=== PATIENT | male | born 1960 | race Caucasian/White ===

== ENCOUNTER 2022-02-16 13:16 | Observation (INO) ==
[2022-02-16] MEDS ORDERED: SODIUM CHLORIDE 0.9% 1000ML 1,000 ML IV STA (13:28)
[2022-02-16] MEDS ORDERED: ONDANSETRON INJ 2 MG/ML 2 ML VIAL IV STA (13:34)
[2022-02-16] MEDS ORDERED: FAMOTIDINE 20 MG in SYRINGE 3 ML IV STA (13:34)
[2022-02-16] MEDS ORDERED: HYDROmorphone INJ 0.5 MG/0.5 ML SYR IV STA (13:34)
[2022-02-16] MEDS ORDERED: DICYCLOMINE HCL 10 MG/ML 2 ML AMP/VIAL IM ONE (13:34)
[2022-02-16] MEDS ORDERED: SODIUM CHLORIDE 0.9% 1000ML 1,000 ML IV SCH (13:45)
[2022-02-16 13:54] LABS: Basophils # (auto) 0.05 K/uL (0-0.2); Basophils % (auto) 0.3 %; Hematocrit (blood only) 49.4 % (40.1-51.0); Hemoglobin 17.8 g/dl (14.0-18.0); Immature Granulocytes # (auto) 0.07 K/uL (0.00-0.02); Immature Granulocytes % (auto) 0.4 %; Lymphocytes # (auto) 2.21 K/uL (1.2-3.4); Lymphocytes % (auto) 11.1 %; Mean Corpuscular Hemoglobin 29.5 pg (25.0-34.0); Mean Corpuscular Volume 81.8 fL (80.0-100.0); Mean Platelet Volume 9.7 fL (9.4-12.4); Monocytes # (auto) 1.53 K/uL (0.24-0.82); Monocytes % (auto) 7.7 %; Neutrophils % (auto) 80.5 %; Platelet Count 247 K/uL (130-400); RDW Coefficient of Variation 12.2 % (11.5-14.5); RDW Standard Deviation 36.4 fL (36.4-46.3); Red Blood Count 6.04 M/uL (4.63-6.08); White Blood Count 19.86 K/ul (4.8-10.8)
[2022-02-16] MEDS ORDERED: FAMOTIDINE 20MG/5ML IV PUSH IV ONE (14:19)
[2022-02-16 14:22] LABS: Alanine Aminotransferase 79 U/L (7-52); Albumin Globulin Ratio 1.1 (0.9-2); Albumin Level 3.9 gm/dl (3.4-5.0); Alkaline Phosphatase 74 U/L (34-104); Anion Gap 15 (3-11); Aspartate Aminotransferase 46 U/L (13-39); BUN Creatinine Ratio 28.4 (10-20); Bilirubin,Total 1.4 mg/dl (0.2-1.0); Blood Urea Nitrogen 23 mg/dl (6-23); Calcium 8.5 mg/dl (8.5-10.1); Carbon Dioxide 21 mmol/L (21-32); Chloride 89 mmol/L (98-107); Est GFR (African American) 112.7 ml/min; Est GFR (Non-African American) 97.3 ml/min; Globulin 3.5 gm/dl (2.5-4.0); Glucose 330 mg/dl (70-99(Fasting)); Lipase 7 U/L (11-82); Potassium 4.6 mmol/L (3.5-5.1); Sodium 125 mmol/L (136-145); Total Protein 7.4 gm/dl (6.0-8.3)
--- NOTE | 2022-02-16 14:42 | History & Physical Report ---
Date of Service February 16, 2022 Assessment & Plan (1) Gastritis and duodenitis: Plan: - CT A/P: Thickening of the pylorus and proximal duodenum may represent infectious/inflammatory gastritis/duodenitis. This is minimally increased from prior exam. Nonobstructive nephrolithiasis also seen. - Likely medication induced from frequent Aleve 10-15 pills/week for headaches, exacerbated by frequent vomiting over past 4 days. - Likely dehydrated and WBC count is reactive, but checking urine to r/o that as a source of potential infection. - Will keep NPO for now but in a few hours could advance to clear liquid diet and continue to advance as tolerated. - Scheduled Pepcid, Protonix, Carafate, Bentyl prn. - Will defer on GI consult unless unable to advance diet in a reasonable amount of time or Hgb starts to decline significantly. Currently stable at 17.8. (2) Elevated LFTs: Plan: - AST, ALT, t bili all mildly elevated, actually lower than baseline over the past year. - CT A/P yesterday 02/15: liver unremarkable, GB w/o stones, normal caliber wall, no intra- or extrahepatic biliary ductal dilation. - Continue to monitor. (3) Uncontrolled type 2 diabetes mellitus: Plan: - Follows with endocrine who has questioned whether he is type 1 vs type 2 - C peptide wnl, islet cell AB negative, insulin autoantibody negative-- indicates DM2. 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 - BSG 330 on admit, AG 15, lactate 2.1, bicarb 21. - Will place on weight based basal/bolus insulin. (4) Dyslipidemia: Plan: - Has previously declined stain therapy, also would not initiate currently with elevated LFTs. (5) Tobacco use disorder: Plan: - Smokes 1 PPD. - Nicotine patch ordered while hospitalized. Plan - Obs med/tele. - SCDs for VTE ppx. - Full Code. History of Present Illness Chief Complaint: abdominal pain, nausea, vomiting x 4 days Primary Care Provider: Jonathon Burns PA-C Oni Jason is a 61-year-old male with past medical history significant for diabetes, hyperlipidemia, and tobacco use who is presenting today with abdominal pain. Starting Monday evening he had severe abdominal pain around his bellybutton with nausea and vomiting. Has been vomiting every 2 hours. He also notes that his sugar has been reading above 600 at home since then. He reports chills but no fevers. Monday was an ordinary day, did not eat anything particularly unusual for him, had [employer] chili and chocolate shake, no alcohol intake, he drinks alcohol very rarely, once or twice per month. He does state he has been taking Aleve fairly frequently, and another medicine that starts within a headaches, approximately 10-15 pills/week. He was seen in our ED yesterday, labs and significant for WBC 18, glucose of 400 with an AG 13, imaging did show thickening of the pylorus and proximal duodenum possibly recommending infectious or inflammatory gastritis/duodenitis. Patient was given IV fluids, pain medication, as well as Trulicity injection and was discharged home as his pain was under much better control. Several hours after returning home his pain came back again, rates 7/10. He has been drinking much more water and urinating more frequently over the past week or so. He has not had any diarrhea, constipation, melena, hematochezia, hematemesis, dysuria, hematuria. Today he is returning for worsening abdominal pain and elevated blood sugars. L abs significant for glucose of 330 with an anion gap of 15, bicarb 21. WBC is slightly elevated to 19.8, lactate 2.1, pseudohyponatremia 125, corrects to [id number] when accounting for BSG 330. T bili, AST, ALT all mildly elevated, all consistent/lower than baseline. Allergies Allergy/AdvReac Type Severity Reaction Status Date / Time No Known Allergies Allergy Verified 02/16/22 14:58 Home Medications Medication Instructions Recorded Confirmed Type OneTouch Delica Lancets 30 gauge #300 ea 02/25/21 11/25/21 Rx (lancets) OneTouch Verio test strips (blood #300 ea 02/25/21 11/25/21 Rx sugar diagnostic) OneTouch Verio Meter #1 ea 06/15/21 11/25/21 Rx (blood-glucose meter) ondansetron 4 mg disintegrating 4 mg PO Q6H PRN nausea and 02/15/22 Rx tablet vomiting #10 tabs dulaglutide 0.75 mg/0.5 mL 0.75 mg subcut WK 02/16/22 02/16/22 History subcutaneous pen injector (Trulicity) Past Med/Surg History Medical History Dyslipidemia Elevated LFTs Tobacco use disorder Uncontrolled type 2 diabetes mellitus Surgical History No significant past surgical history Social History Smoking Status: Current every day smoker Tobacco Type: Cigarettes Preferred Language: Citizen Of [place] marital status: Single Current Living Situation: Significant Other current occupational status: unemployed Feels Safe at Home: Yes Review of Systems Review of Systems: Constitutional: chills and anorexia x 4 days without fever; no weakness, fatigue, myalgias, night sweats Eyes: No diplopia, no worsening or blurred vision ENT: normal hearing, no trouble swallowing Respiratory: No cough, sputum, dyspnea at rest or on exertion Cardiovascular: No chest pain, tightness or palpitations Abdomen: central abdominal pain with nausea, vomiting x 4 days, no diarrhea, constipation, melena, hematochezia, hematemesis : Denies dysuria, hematuria, increased urgency/frequency, urinary retention Musculoskeletal: No joint pain, calf pain, swelling Neurologic: No weakness, numbness/tingling, or balance problems Psychiatric: No anxiety or depression Skin: No rash or itch Physical Exam Physical Exam: General: awake, alert, no apparent distress Head: Normocephalic, atraumatic ENT: PERRL, EOMI, no pharyngeal exudate, mucous membranes moist Chest: Clear to auscultation, on room air, no adventitious breath sounds Cardiac: Regular rate and rhythm, no murmur, no JVD, normal peripheral pulses, good capillary refill Abdominal: TTP in periumbilical region without rebound or guarding; NABS x 4 quadrants, soft, nontender to palpation Extremities: Normal inspection, no peripheral edema or erythema, calfs nontender to palpation Psych: Normal mood and affect Neuro: AAO x 3, strength intact bilaterally and rated 5/5, no motor deficits, speech is clear, no peripheral sensory deficits Skin: no rash or erythema Results & Data Results & Data ([facility]) Vital Signs (Past 12 Hours) Vital Signs Temp Pulse Resp BP Pulse Ox O2 Del Method 02/16/22 13:21 37.1 C 109 H 16 147/97 H 99 Room Air Laboratory Results Abnormal lab results 02/16/22 02/16/22 02/16/22 Range/Units 13:44 13:44 13:44 WBC 19.86 H (4.8-10.8) K/ul Neut # (Auto) 16.00 H (1.4-6.5) K/uL [place] # (Auto) 1.53 H (0.24-0.82) K/uL Immature Gran # (Auto) 0.07 H (0.00-0.02) K/uL Sodium 125 L (136-145) mmol/L Chloride 89 L (98-107) mmol/L Anion Gap 15 H (3-11) BUN/Creatinine Ratio 28.4 H (10-20) Glucose 330 H* (70-99(Fasting)) mg/dl Lactate 2.1 H* (0.4-2.0) mmol/L Total Bilirubin 1.4 H (0.2-1.0) mg/dl AST 46 H (13-39) U/L ALT 79 H (7-52) U/L Lipase 7 L (11-82) U/L ECG Additional Comments: Sinus tachycardia Possible Anterior infarct , age undetermined Abnormal ECG When compared with ECG of 06-APR-2015 17:06, Nonspecific T wave abnormality no longer evident in Lateral leads. Code Status & VTE Plan Code Status Full Code. Supervising Physician Co-Signing Physician Notes Patient was seen and examined independently I discussed the case with Lindsay FLYNN I reviewed pertinent past medical social family history and also the plan of care and agree with the plan of care. Patient be brought in the facility because he cannot keep down liquids solids and is diabetic. Patient has improved abdominal pain with hydration here in the ER. He denies having any melena. His examination has some mild epigastric discomfort to deep palpation and some bilateral lower abdominal quadrant discomfort to exam. Otherwise he appears to be stable at this time. The patient brought in to treat the possible NSAID associated gastritis with PPI H2 and Carafate Advance his diet cautiously and follow his glucose for appropriate diabetic care Any exceptions will be noted below PG Care Time/CCT Total # of Minutes Spent Total Time Spent with Patient: Total time spent is greater than 50% in coordination of care (as documented) at patient's floor/unit and/or counseling patient: Coding Level of Care Code INT OBSERVATION CARE 70M LVL 3 Diagnoses Gastritis and duodenitis K29.90 Elevated LFTs R79.89 Uncontrolled type 2 diabetes mellitus E11.65 Dyslipidemia E78.5 Tobacco use disorder F17.200
[2022-02-16] MEDS ORDERED: GLUCOSE 10 TAB/TUBE PO PRN ×2 (16:00→16:30)
[2022-02-16] MEDS ORDERED: GLUCAGON FOR INJ 1 MG VIAL SQ PRN ×2 (16:00→16:30)
[2022-02-16] MEDS ORDERED: CARBOHYDRATES FOR HYPOGLYCEMIA PO PRN ×2 (16:00→16:30)
[2022-02-16] MEDS ORDERED: DEXTROSE 50% 50 ML SYRINGE IV PRN ×2 (16:00→16:30)
[2022-02-16] MEDS ORDERED: GLUCOSE 40% GEL 15 GM TUBE PO PRN ×2 (16:00→16:30)
[2022-02-16 16:03] LABS: Appearance Urine Clear (Clear); Bilirubin Urine Negative (Negative); Blood Urine Negative (Negative); Color Urine Yellow; Glucose Urine UA 3+ (Negative); Ketones Urine 3+ (Negative); Leukocyte Esterase Urine Negative (Negative); Nitrite Urine Negative (Negative); Protein Urine Negative (Negative); Specific Gravity Urine 1.035 (1.000-1.030); Urobilinogen Urine Negative (Negative); pH Urine 5.5 (4.5-7.5)
[2022-02-16] MEDS ORDERED: ALUMINUM/MAGNESIUM SUSP 30 ML UDC PO PRN (16:30)
[2022-02-16] MEDS ORDERED: POLYETHYLENE (MIRALAX) 17 GM PACK PO PRN (16:30)
[2022-02-16] MEDS ORDERED: INSULIN ASPART PER UNIT SC SCH ×2 (16:30)
[2022-02-16] MEDS ORDERED: MoRPHine SULFATE 4 MG/ML 1 ML CARP\\VIAL IV PRN (16:30)
[2022-02-16] MEDS ORDERED: PHARMACY GLYCEMIC MGMT CONSULT PRN (16:30)
[2022-02-16] MEDS ORDERED: ONDANSETRON INJ 2 MG/ML 2 ML VIAL IV PRN (16:30)
[2022-02-16] MEDS ORDERED: PNEUMOCOCCAL POLYSACCHARIDES 25 MCG/0.5 ML VIAL/SYR IM ONE (16:46)
[2022-02-16] MEDS ORDERED: FLUARIX QUADRIVALENT 0.5 ML SYR IM ONE (16:46)
[2022-02-16] MEDS ORDERED: Nursing to Pharmacy Communication SCH ×2 (17:00→21:15)
[2022-02-16] MEDS: LACTATED RINGER'S 1,000 ML IV SCH (17:01)
[2022-02-16] MEDS: SUCRALFATE 1 GM/10 ML UDC PO SCH ×2 (17:48→20:03)
[2022-02-16] MEDS: DICYCLOMINE HCL 10 MG CAP PO SCH ×2 (17:48→20:03)
[2022-02-16] MEDS ORDERED: LANTUS PER UNIT CHARGE SQ ONE (18:00)
--- NOTE | 2022-02-16 18:43 | Emergency Department Note ---
Impression & Plan Uncontrolled type 2 diabetes mellitus, Kidney stone, Abdominal pain, Nausea and vomiting, Gastritis and duodenitis ED Provider Note CHIEF COMPLAINT: Abdominal pain, diabetes HISTORY OF PRESENT ILLNESS: This 61-year-old male patient presents to the emergency department with complaints of continued abdominal pain. The patient was evaluated here yesterday in the emergency department and noted to have elevated blood glucose levels. He states he has been off of his Trulicity until yesterday when he was given a shot in the emergency department. Patient states he had a CAT scan of his abdomen and was told that he had inflammation of the stomach. He has been vomiting recently. Patient states his blood sugars are high because he has not been eating properly. He denies any fevers, chills, blood in the emesis or stools. REVIEW OF SYSTEMS: A review of systems was performed with positives and pertinent negatives listed in the history of present illness. 10 systems were reviewed and are otherwise negative. ALLERGIES: see below MEDICATIONS: see below PMH: see below SOCIAL HISTORY: see below DDx:Appendicitis, testicular torsion, infections, diverticulitis, UTI, obstructi on, mesenteric ischemia, aortic pathology, inflammatory bowel disease, renal colic, PUD, pancreatitis, biliary pathology, hernia, volvulus, constipation, as well as other pathologies. PHYSICAL EXAM: Vital signs reviewed. General: Chronically ill-appearing 61 yo male, in some discomfort. HEENT: No scleral icterus, PERRLA, neck supple. Moist mucous membranes Cardiovascular: Regular rate and rhythm, no extra sounds. Pulmonary: Clear to auscultation bilaterally, normal work of breathing. Abdomen: Soft, mild diffuse tenderness, no rebound or guarding, nondistended, positive bowel sounds. Musculoskeletal: Atraumatic, no peripheral edema. Neurologic: Patient awake alert and oriented x 3 Skin: Warm, dry, no rash EMERGENCY DEPARTMENT COURSE/MDM: This patient was evaluated and appeared to be in no significant distress. IV access was obtained and laboratory work was drawn. The patient was placed on the cardiac cath technician and noted to be slightly tachycardic. The patient was hydrated with normal saline solution, given IV Dilaudid and Zofran and 20 mg of IM Bentyl for his discomfort. Patient's records from yesterday were reviewed. He was given 20 mg of IV Pepcid. He did admit to taking aspirin to help "cleanse his blood sugar." Patient's laboratory work reveals a leukocytosis which is consistent with yesterday at 19, and the anion gap of 15 and lactate of 2.1. Patient was also noted to be hyponatremic with a blood glucose of 330. I did discuss the case with the hospitalist serv ice, I do believe there is a mixed picture secondary to his Trulicity yesterday and his acute abdominal pain. Patient may need to be evaluated for endoscopy. He will be evaluated by the hospitalist service for admission and further management. Patient is aware of the plan and agrees. MONITORING: An order for cardiac monitoring was placed and the patient is noted to be in a [] at [] beats per minute. RADIOLOGY: See below EKG: Sinus tachycardia at 103 bpm, possible previous anterior infarct, QTC of 445. Normal ST segments. No PVC, no PAC. DISPOSITION: Admission Past Med/Surg History Medical History Dyslipidemia Elevated LFTs Tobacco use disorder Uncontrolled type 2 diabetes mellitus Surgical History No significant past surgical history Social History Smoking Status: Current every day smoker Tobacco Type: Cigarettes Second Hand Exposure: Yes; Do You Dip or Chew Tobacco: No; Tobacco Cessation Education Requested by Patient: No Hx Alcohol Use: Yes Alcohol type: beer Hx Substance Use: Yes Preferred Language: Portuguese Console Assembler Required: No Beliefs That Will Affect Care: None marital status: Single Current Living Situation: Spouse current occupational status: unemployed Other Information That Helps Us Care for You: No Feels Safe at Home: Yes Allergies Allergies Allergy/AdvReac Type Severity Reaction Status Date / Time No Known Allergies Allergy Verified 02/16/22 14:58 Home Meds Home Medications Medication Instructions Recorded Confirmed dulaglutide 0.75 mg/0.5 mL 0.75 mg subcut WK 02/16/22 02/16/22 subcutaneous pen injector (Trulicity) Previous Rx's Medication Instructions Recorded OneTouch Delica Lancets 30 gauge #300 ea 02/25/21 (lancets) OneTouch Verio test strips (blood #300 ea 02/25/21 sugar diagnostic) OneTouch Verio Meter #1 ea 06/15/21 (blood-glucose meter) ondansetron 4 mg disintegrating 4 mg PO Q6H PRN nausea and 02/15/22 tablet vomiting #10 tabs Results & Data (ED) Vital Signs Vital Signs - 24 hr 02/16/22 13:21 02/16/22 15:00 02/16/22 15:00 Temperature 37.1 C Temperature Source Temporal Artery Scan Pulse Rate 109 H Pulse Rate [Finger] 106 H Pulse Rhythm [Finger] Regular Pulse Strength [Finger] Normal Respiratory Rate 16 18 Respiratory Effort / Characteristics Non-Labored Spontaneous Non-Labored Respiratory Depth Normal Normal Respiratory Pattern Regular Regular Blood Pressure 147/97 H Blood Pressure [Right Arm] 174/102 H Blood Pressure Mean 113 Blood Pressure Mean [Right Arm] 126 Blood Pressure Position Sitting Pulse Oximetry 99 97 98 Oxygen Delivery Method Room Air Room Air Room Air Sepsis Recent Fever Within 48 Hours No Sepsis New/Unexplained Change in Mental Status No Sepsis Action Taken by Nursing No Action Required Home Medications Current Medication List: was personally reviewed by me Laboratory Data Attestation: I reviewed the patient's lab results. Result diagrams: 02/16/22 13:44 02/16/22 13:44 Lab Results 02/16/22 02/16/22 02/16/22 Range/Units 13:44 13:44 13:44 WBC 19.86 H (4.8-10.8) K/ul RBC 6.04 (4.63-6.08) M/uL Hgb 17.8 (14.0-18.0) g/dl Hct 49.4 (40.1-51.0) % MCV 81.8 (80.0-100.0) fL MCH 29.5 (25.0-34.0) pg MCHC 36.0 (32.0-36.0) g/dL RDW Std Deviation 36.4 (36.4-46.3) fL RDW Coeff of Emma 12.2 (11.5-14.5) % Plt Count 247 (130-400) K/uL MPV 9.7 (9.4-12.4) fL Immature Gran % (Auto) 0.4 % Neut % (Auto) 80.5 % Lymph % (Auto) 11.1 % [place] % (Auto) 7.7 % Eos % (Auto) 0.0 % Baso % (Auto) 0.3 % Neut # (Auto) 16.00 H (1.4-6.5) K/uL Lymph # (Auto) 2.21 (1.2-3.4) K/uL [place] # (Auto) 1.53 H (0.24-0.82) K/uL Eos # (Auto) 0.00 (0-0.50) K/uL Baso # (Auto) 0.05 (0-0.2) K/uL Immature Gran # (Auto) 0.07 H (0.00-0.02) K/uL Sodium 125 L (136-145) mmol/L Potassium 4.6 (3.5-5.1) mmol/L Chloride 89 L (98-107) mmol/L Carbon Dioxide 21 (21-32) mmol/L Anion Gap 15 H (3-11) BUN 23 (6-23) mg/dl Creatinine 0.81 (0.6-1.4) mg/dl Est Cr Clr Drug Dosing Not Reportable Est GFR ( Amer) 112.7 ml/min Est GFR (Non-Af Amer) 97.3 ml/min BUN/Creatinine Ratio 28.4 H (10-20) Glucose 330 H* (70-99(Fasting)) mg/dl Lactate 2.1 H* (0.4-2.0) mmol/L Calcium 8.5 (8.5-10.1) mg/dl Total Bilirubin 1.4 H (0.2-1.0) mg/dl AST 46 H (13-39) U/L ALT 79 H (7-52) U/L Alkaline Phosphatase 74 (34-104) U/L Total Protein 7.4 (6.0-8.3) gm/dl Albumin 3.9 (3.4-5.0) gm/dl Globulin 3.5 (2.5-4.0) gm/dl Albumin/Globulin Ratio 1.1 (0.9-2) Lipase 7 L (11-82) U/L SARS-CoV-2, RNA, NAAT (NEGATIVE) 02/16/22 Range/Units 13:44 WBC (4.8-10.8) K/ul RBC (4.63-6.08) M/uL Hgb (14.0-18.0) g/dl Hct (40.1-51.0) % MCV (80.0-100.0) fL MCH (25.0-34.0) pg MCHC (32.0-36.0) g/dL RDW Std Deviation (36.4-46.3) fL RDW Coeff of Emma (11.5-14.5) % Plt Count (130-400) K/uL MPV (9.4-12.4) fL Immature Gran % (Auto) % Neut % (Auto) % Lymph % (Auto) % [place] % (Auto) % Eos % (Auto) % Baso % (Auto) % Neut # (Auto) (1.4-6.5) K/uL Lymph # (Auto) (1.2-3.4) K/uL [place] # (Auto) (0.24-0.82) K/uL Eos # (Auto) (0-0.50) K/uL Baso # (Auto) (0-0.2) K/uL Immature Gran # (Auto) (0.00-0.02) K/uL Sodium (136-145) mmol/L Potassium (3.5-5.1) mmol/L Chloride (98-107) mmol/L Carbon Dioxide (21-32) mmol/L Anion Gap (3-11) BUN (6-23) mg/dl Creatinine (0.6-1.4) mg/dl Est Cr Clr Drug Dosing Est GFR ( Amer) ml/min Est GFR (Non-Af Amer) ml/min BUN/Creatinine Ratio (10-20) Glucose (70-99(Fasting)) mg/dl Lactate (0.4-2.0) mmol/L Calcium (8.5-10.1) mg/dl Total Bilirubin (0.2-1.0) mg/dl AST (13-39) U/L ALT (7-52) U/L Alkaline Phosphatase (34-104) U/L Total Protein (6.0-8.3) gm/dl Albumin (3.4-5.0) gm/dl Globulin (2.5-4.0) gm/dl Albumin/Globulin Ratio (0.9-2) Lipase (11-82) U/L SARS-CoV-2, RNA, NAAT NEGATIVE (NEGATIVE) Administered Medications Dicyclomine HCl (Dicyclomine Hcl 10 Mg Cap) 10 mg PO ACHS CAMILO Stop: 03/18/22 16:59 Last Admin: 02/16/22 17:48 Dose: 10 mg Documented By: TLM Lactated Ringer's (Lr) 1,000 mls @ 125 mls/hr IV .Q8H CAMILO Stop: 02/17/22 08:29 Last Admin: 02/16/22 17:01 Dose: 125 mls/hr Documented By: TLM Insulin Aspart (Insulin Aspart Per Unit) 0 units SC Q6H CAMILO Stop: 03/18/22 16:29 Last Admin: 02/16/22 17:53 Dose: Not Given Documented By: TLM Sucralfate (Sucralfate 1 Gm/10 Ml Udc) 1 gm PO ACHS CAMILO Stop: 03/18/22 16:59 Last Admin: 02/16/22 17:48 Dose: 1 gm Documented By: TLM Discontinued Medications Dicyclomine HCl (Dicyclomine Hcl 10 Mg/Ml 2 Ml Amp/Vial) 20 mg IM NOW ONE Stop: 02/16/22 13:35 Last Admin: 02/16/22 13:57 Dose: 20 mg Documented By: QGV Famotidine (Famotidine 20mg/5ml Iv Push) Confirm Administered Dose 20 mg IV .STK-MED ONE Stop: 02/16/22 14:20 Last Admin: 02/16/22 14:21 Dose: Not Given Documented By: NH Hydromorphone HCl (Hydromorphone Inj 0.5 Mg/0.5 Ml Syr) 0.5 mg IV NOW STA Stop: 02/16/22 13:35 Last Admin: 02/16/22 13:58 Dose: 0.5 mg Documented By: QGV Sodium Chloride (Nss 1000ml) 1,000 mls @ 999 mls/hr IV .Q1H1M STA Stop: 02/16/22 14:28 Last Infusion: 02/16/22 15:17 Dose: 0 mls/hr Documented By: Admin: 02/16/22 13:44 Dose: 999 mls/hr Documented By: OAM Famotidine 20 mg/ Syringe 5 mls @ 2.5 mls/min IV NOW STA Stop: 02/16/22 13:35 Last Admin: 02/16/22 14:22 Dose: 2.5 mls/min Documented By: NH Sodium Chloride (Nss 1000ml) 1,000 mls @ 150 mls/hr IV .Q6H40M CAMILO Stop: 03/18/22 13:44 Last Admin: 02/16/22 14:22 Dose: 150 mls/hr Documented By: NH Insulin Aspart (Insulin Aspart Per Unit) 0 units SC ACHS CAMILO Stop: 03/18/22 16:29 Last Admin: 02/16/22 17:33 Dose: 4 units Documented By: TLM Co-signed By: ALYSHA Insulin Glargine (Lantus Per Unit Charge) 12 units SQ NOW ONE Stop: 02/16/22 18:01 Last Admin: 02/16/22 17:58 Dose: 12 units Documented By: TLM Co-signed By: EMRE Ondansetron HCl (Ondansetron Inj 2 Mg/Ml 2 Ml Vial) 4 mg IV NOW STA Stop: 02/16/22 13:35 Last Admin: 02/16/22 13:58 Dose: 4 mg Documented By: QGV Blood Pressure Blood Pressure Findings: Elevated blood pressure Blood Pressure Disposition: further management by hospitalist Discharge Plan Visit Data Chief Complaint: Abdominal Pain Stated Complaint: ABD PAIN ED Provider: Morena Wilde Discharge Problem: Uncontrolled type 2 diabetes mellitus, Kidney stone, Abdominal pain, Nausea and vomiting, Gastritis and duodenitis Patient Disposition: Admitted As Inpatient Discharge Instructions Interventions: ED Discharge Assessment Last Done: 02/16/22 16:13
[2022-02-16] MEDS: PANTOprazole 40 MG TAB PO SCH (20:02)
[2022-02-16] MEDS: FAMOTIDINE 20 MG TAB PO SCH (20:03)
[2022-02-16] MEDS ORDERED: LANTUS PER UNIT CHARGE SQ SCH (21:00)
[2022-02-16] MEDS: INSULIN ASPART PER UNIT SC SCH (21:22)
[2022-02-17] MEDS: LACTATED RINGER'S 1,000 ML IV SCH (01:13)
[2022-02-17] MEDS: MoRPHine SULFATE 2 MG/ML CARP IV PRN ×2 (01:13→12:55)
[2022-02-17] MEDS ORDERED: INSULIN ASPART PER UNIT SC SCH (02:00)
[2022-02-17 06:52] LABS: Basophils # (auto) 0.04 K/uL (0-0.2); Basophils % (auto) 0.3 %; Eosinophils # (auto) 0.02 K/uL (0-0.50); Eosinophils % (auto) 0.1 %; Hemoglobin 15.7 g/dl (14.0-18.0); Immature Granulocytes # (auto) 0.09 K/uL (0.00-0.02); Immature Granulocytes % (auto) 0.6 %; Lymphocytes # (auto) 3.01 K/uL (1.2-3.4); Lymphocytes % (auto) 19.1 %; Mean Corpuscular Hemoglobin 29.2 pg (25.0-34.0); Mean Corpuscular Hgb Conc 34.9 g/dL (32.0-36.0); Mean Corpuscular Volume 83.6 fL (80.0-100.0); Mean Platelet Volume 9.6 fL (9.4-12.4); Monocytes # (auto) 1.46 K/uL (0.24-0.82); Monocytes % (auto) 9.2 %; Neutrophils # (auto) 11.18 K/uL (1.4-6.5); Neutrophils % (auto) 70.7 %; Platelet Count 217 K/uL (130-400); RDW Coefficient of Variation 12.1 % (11.5-14.5); RDW Standard Deviation 36.9 fL (36.4-46.3); Red Blood Count 5.38 M/uL (4.63-6.08)
[2022-02-17 07:09] LABS: Albumin Globulin Ratio 1.2 (0.9-2); Albumin Level 3.4 gm/dl (3.4-5.0); Bilirubin,Total 1.3 mg/dl (0.2-1.0); Creatinine Clr Calc Pharmacy 106.1 ml/min; Est GFR (African American) 116.4 ml/min; Est GFR (Non-African American) 100.4 ml/min; Globulin 2.9 gm/dl (2.5-4.0); Magnesium 1.8 mg/dl (1.7-2.4); Potassium 3.8 mmol/L (3.5-5.1); Total Protein 6.3 gm/dl (6.0-8.3)
--- NOTE | 2022-02-17 07:17 | Electrocardiogram Report ---
Test Reason : Blood Pressure : / mmHG Vent. Rate : 103 BPM Atrial Rate : 103 BPM P-R Int : 144 ms QRS Dur : 072 ms QT Int : 340 ms P-R-T Axes : 079 041 067 degrees QTc Int : 445 ms Sinus tachycardia When compared with ECG of 06-APR-2015 17:06, No significant change Confirmed by John Fu ([id number]) on 02/17/2022 7:16:34 AM Referred By: Confirmed By:John Fu
[2022-02-17] MEDS: PANTOprazole 40 MG TAB PO SCH ×2 (07:45→21:41)
[2022-02-17] MEDS: FAMOTIDINE 20 MG TAB PO SCH ×2 (07:45→21:41)
[2022-02-17] MEDS: SUCRALFATE 1 GM/10 ML UDC PO SCH ×4 (07:45→21:40)
[2022-02-17] MEDS: DICYCLOMINE HCL 10 MG CAP PO SCH ×4 (07:45→21:41)
[2022-02-17] MEDS: NICOTINE 21 MG/24 HR TDSY TD SCH (07:48)
[2022-02-17] MEDS ORDERED: LANTUS PER UNIT CHARGE SQ SCH (09:00)
[2022-02-17] MEDS: INSULIN ASPART PER UNIT SC SCH ×4 (09:28→21:41)
[2022-02-17] MEDS ORDERED: LANTUS PER UNIT CHARGE SQ STA (12:06)
--- NOTE | 2022-02-17 15:18 | Pharmacy Report ---
Pharmacy Glycemic Short Note 2 - Date of Service February 17, 2022 - Glycemic Short BSG Results (Last 24 hours): 02/16/22 02/16/22 02/17/22 16:52 21:00 02:25 Glucose POC Glucose 253 H 197 H 162 H 02/17/22 02/17/22 02/17/22 06:31 07:52 11:58 Glucose 130 H POC Glucose 180 H 246 H OUTPATIENT ANTIDIABETIC REGIMEN: * Trulicity 0.75 mg SC every Monday * HbA1c = 12% (02/15/22) ASSESSMENT: * 61 yo M admitted secondary to nausea and vomiting. Pharmacy has been consulted to assist with inpatient glycemic management. Patient is on Trulicity monotherapy as an outpatient. Ordered and tolerating a clear liquid diet. Nausea and vomiting persists. * BSGs last evening were: 330-253-197 mg/dL. * Received 12 units of Lantus and 6 units of Novolog. * Fasting BSG was 180 mg/dL this AM. Lunchtime BSG was 246 mg/dL. * Increased Lantus to 12 units BID. Tightened Novolog. PLAN FOR INPATIENT GLYCEMIC CONTROL: * Basal insulin * Lantus 12 units SC BID * Bolus insulin * NovoLog per scale ACHS or Q6hrs while NPO * Goal Range: Low 110 mg/dL - High 140 mg/dL * Correction Factor: 25 mg/dL/unit * Nutritional / Prandial insulin per carb ratio of 1 unit per 8 grams CHO consumed
--- NOTE | 2022-02-17 17:50 | Gastrointestinal Consultation ---
Date of Consultation February 17, 2022 Assessment & Plan (1) Elevated LFTs: Followup in our office as outpatient for further workup LFT's most likely chronically elevated due to fatty liver Recommend 100% abstinence from all alcohol as it is a known liver toxin. (2) Nausea and vomiting: Recommend Antiemetic therapy PRN No complaints of this at present (3) Abdominal pain: Recommend tighter blood glucose control, as fluctuations in BG levels both acutely and chronically can cause abdominal pain and decreased GI motility (4) Gastritis and duodenitis: (5) Abnormal abdominal CT scan: No alarm symptoms at present to warrant emergent endoscopic workup I would recommend checking a Stool H. pylori Ag now....if positive, I would recommend treatment Continue Pantoprazole 40 mg PO BID Continue Famotidine 20 mg by mouth twice daily Continue Carafate 1g by mouth QID AC and HS for 10 days Avoid all NSAID's as they are ulcerogenic....recommend Tylenol PRN for pain contro. History of Present Illness Reason for Consultation: Epigastric pain and NSAID use Attending Physician: William Hu History of Present Illness Oni Jason is a 61 yo CM with poorly controlled DM, elevated LFT's and chronic NSAID use, who presented to the ER on two separate occasions in the past few days. He complained of significant mid-epigastric pain, without radiation, with some associated nausea and vomiting. He stated that he was self-medicating at home with Aleve, up to 15 tablets per week. His evaluation in the ER revealed a blood glucose of 330, Hgb 17.8, Hct 49.4, Tbili 1.4, AST 46, and ALT 79. He also underwent a CT abd/pelvis and was noted to have, "Thickening of the pylorus and proximal duodenum may represent infectious/inflammatory gastritis/duodenitis. This is minimally increased from prior exam. Nonobstructive nephrolithiasis also seen." He was subsequently given IVF and started on Pantoprazole 40 mg PO BID, Famotidine 20 mg PO BID, and Carafate 1g by mouth QID. At the time I saw the patient, he was resting comfortably in bed. He states that he feels much better than when he arrived. He did eat, "about half of my lunch today." He states he has not had any hematemesis, melena, or hematochezia, and in fact has not had a BM in approximately 2 days. He denies any fevers, chills, nausea, vomiting, or diarrhea. He has no further complaints. Allergies Allergy/AdvReac Type Severity Reaction Status Date / Time No Known Allergies Allergy Verified 02/16/22 14:58 Home Medications Medication Instructions Recorded Confirmed Type OneTouch Delica Lancets 30 gauge #300 ea 02/25/21 11/25/21 Rx (lancets) OneTouch Verio test strips (blood #300 ea 02/25/21 11/25/21 Rx sugar diagnostic) OneTouch Verio Meter #1 ea 06/15/21 11/25/21 Rx (blood-glucose meter) ondansetron 4 mg disintegrating 4 mg PO Q6H PRN nausea and 02/15/22 02/16/22 Rx tablet vomiting #10 tabs dulaglutide 0.75 mg/0.5 mL 0.75 mg subcut WK 02/16/22 02/16/22 History subcutaneous pen injector (Trulicity) Patient History Medical History Dyslipidemia Elevated LFTs Tobacco use disorder Uncontrolled type 2 diabetes mellitus Surgical History No significant past surgical history Social History Smoking Status: Current every day smoker Tobacco Type: Cigarettes Second Hand Exposure: Yes; Do You Dip or Chew Tobacco: No; Tobacco Cessation Education Requested by Patient: No Hx Alcohol Use: Yes Alcohol type: beer Hx Substance Use: Yes Preferred Language: [place] Student Accounts Manager Required: No Beliefs That Will Affect Care: None marital status: Single Current Living Situation: Spouse current occupational status: unemployed Other Information That Helps Us Care for You: No Feels Safe at Home: Yes Review of Systems Review of Systems: All systems reviewed & are unremarkable except as noted in Subjective Physical Exam Constitutional: + ill appearing (Chronic ); no acute distress Eyes: + anicteric sclerae ENMT: external ear and nose normal, oropharynx normal Neck: normal visual inspection Respiratory: normal respiratory effort, lungs clear to auscultation Cardiovascular: RRR, no murmur, no edema Gastrointestinal (Abdomen): normal bowel sounds, soft, nontender, no hepatosplenomegaly Skin: no rashes, warm and dry Psychiatric: A+Ox3, euthymic affect Results & Data ([facility]) Vital Signs (Past 12 Hours) Vital Signs Temp Pulse Resp BP Pulse Ox O2 Del Method 02/17/22 15:38 37.0 C 86 16 144/82 H 98 Room Air 02/17/22 07:35 36.6 C 87 16 146/72 H 98 Room Air PG Care Time/CCT Total # of Minutes Spent Total Time Spent with Patient: Total time spent is greater than 50% in coordination of care (as documented) at patient's floor/unit and/or counseling patient: Coding Level of Care Code 96033 Inpt Consult Level 4 Diagnoses Elevated LFTs R79.89 Nausea and vomiting R11.2 Vomiting type: unspecified Abdominal pain R10.13 Abdominal location: epigastric Gastritis and duodenitis K29.[address] scan R93.5 (1) Nausea and vomiting Vomiting type: unspecified Qualified Code(s): R11.2 - Nausea with vomiting, unspecified (2) Abdominal pain Abdominal location: epigastric Qualified Code(s): R10.13 - Epigastric pain
[2022-02-17] MEDS: LANTUS PER UNIT CHARGE SQ SCH (21:41)
--- NOTE | 2022-02-17 21:53 | Hospitalist Progress Note ---
Date of Service February 17, 2022 Assessment & Plan (1) Gastritis and duodenitis: Plan: - CT A/P: Thickening of the pylorus and proximal duodenum may represent infectious/inflammatory gastritis/duodenitis. This is minimally increased from prior exam. Nonobstructive nephrolithiasis also seen. - Likely medication induced from frequent Aleve 10-15 pills/week for headaches, exacerbated by frequent vomiting over past 4 days. - Likely dehydrated and WBC count is reactive, but checking urine to r/o that as a source of potential infection. - Will keep NPO for now but in a few hours could advance to clear liquid diet and continue to advance as tolerated. - Scheduled Pepcid, Protonix, Carafate, Bentyl prn. - hemoglobin dropped a bit, as patient continues to have epigastric pain. will consult GI. continue above treatment. (2) Elevated LFTs: Plan: - AST, ALT, t bili all mildly elevated, actually lower than baseline over the past year. - CT A/P yesterday 02/15: liver unremarkable, GB w/o stones, normal caliber wall, no intra- or extrahepatic biliary ductal dilation. - Continue to monitor. (3) Uncontrolled type 2 diabetes mellitus: Plan: - Follows with endocrine who has questioned whether he is type 1 vs type 2 - C peptide wnl, islet cell AB negative, insulin autoantibody negative-- indicates DM2. 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 - BSG 330 on admit, AG 15, lactate 2.1, bicarb 21. - Will place on weight based basal/bolus insulin. (4) Dyslipidemia: Plan: - Has previously declined stain therapy, also would not initiate currently with elevated LFTs. (5) Tobacco use disorder: Plan: - Smokes 1 PPD. - Nicotine patch ordered while hospitalized. Plan - Obs med/tele. - SCDs for VTE ppx. - Full Code. Admission and Anticipated Discharge Date Admission Date: February 16, 2022 Subjective Patient complaining of epigastric pain today. Patient reports his pain is about the same. He has not new complaints. Review of Systems Review of Systems: All systems reviewed & are unremarkable except as noted in HPI & below Physical Exam Physical Exam: General: awake, alert, no apparent distress Head: Normocephalic, atraumatic ENT: PERRL, EOMI, no pharyngeal exudate, mucous membranes moist Chest: Clear to auscultation, on room air, no adventitious breath sounds Cardiac: Regular rate and rhythm, no murmur, no JVD, normal peripheral pulses, good capillary refill Abdominal: TTP in periumbilical region without rebound or guarding; NABS x 4 quadrants, soft, nontender to palpation Extremities: Normal inspection, no peripheral edema or erythema, calfs nontender to palpation Psych: Normal mood and affect Neuro: AAO x 3, strength intact bilaterally and rated 5/5, no motor deficits, speech is clear, no peripheral sensory deficits Skin: no rash or erythema Results & Data Results & Data ([facility]) Vital Signs (Past 12 Hours) Vital Signs Temp Pulse Resp BP Pulse Ox O2 Del Method 02/17/22 21:25 37.4 C 93 H 16 137/75 96 Room Air 02/17/22 15:38 37.0 C 86 16 144/82 H 98 Room Air PG Care Time/CCT Total # of Minutes Spent Total Time Spent with Patient: Total time spent is greater than 50% in coordination of care (as documented) at patient's floor/unit and/or counseling patient: Coding Level of Care Code 84077 Subseq Hosp Care Lvl 2 Diagnoses Gastritis and duodenitis K29.90 Elevated LFTs R79.89 Uncontrolled type 2 diabetes mellitus E11.65 Glycemic state: with hyperglycemia Dyslipidemia E78.5 Tobacco use disorder F17.200 Time Spent (min) 25 (1) Uncontrolled type 2 diabetes mellitus Glycemic state: with hyperglycemia Qualified Code(s): E11.65 - Type 2 diabetes mellitus with hyperglycemia
[2022-02-17] MEDS ORDERED: MELATONIN 3 MG TAB PO PRN (22:00)
[2022-02-18] MEDS: MoRPHine SULFATE 2 MG/ML CARP IV PRN ×2 (03:07→08:04)
[2022-02-18] MEDS: SUCRALFATE 1 GM/10 ML UDC PO SCH ×2 (07:57→12:36)
[2022-02-18] MEDS: DICYCLOMINE HCL 10 MG CAP PO SCH ×2 (07:57→12:36)
[2022-02-18] MEDS: NICOTINE 21 MG/24 HR TDSY TD SCH (07:58)
[2022-02-18] MEDS: PANTOprazole 40 MG TAB PO SCH (08:46)
[2022-02-18] MEDS: FAMOTIDINE 20 MG TAB PO SCH (08:46)
[2022-02-18] MEDS: INSULIN ASPART PER UNIT SC SCH ×2 (08:51→12:39)
[2022-02-18] MEDS: LANTUS PER UNIT CHARGE SQ SCH (08:51)
[2022-02-18 09:33] LABS: Hematocrit (blood only) 42.1 % (40.1-51.0); Hemoglobin 14.6 g/dl (14.0-18.0); Mean Corpuscular Hemoglobin 29.3 pg (25.0-34.0); Mean Corpuscular Hgb Conc 34.7 g/dL (32.0-36.0); Mean Corpuscular Volume 84.5 fL (80.0-100.0); Mean Platelet Volume 9.4 fL (9.4-12.4); Platelet Count 203 K/uL (130-400); RDW Standard Deviation 36.3 fL (36.4-46.3); Red Blood Count 4.98 M/uL (4.63-6.08); White Blood Count 12.27 K/ul (4.8-10.8)
[2022-02-18 09:55] LABS: Albumin Level 3.2 gm/dl (3.4-5.0); Bilirubin Direct 0.2 mg/dl (0-0.2); Calcium 7.9 mg/dl (8.5-10.1); Creatinine Clr Calc Pharmacy 106.1 ml/min; Est GFR (African American) 116.4 ml/min; Est GFR (Non-African American) 100.4 ml/min; Potassium 3.7 mmol/L (3.5-5.1)
--- NOTE | 2022-02-18 12:01 | Pharmacy Report ---
Pharmacy Glycemic Short Note 2 - Date of Service February 18, 2022 - Glycemic Short BSG Results (Last 24 hours): 02/17/22 02/17/22 02/17/22 11:58 16:52 21:22 Glucose POC Glucose 246 H 147 H 186 H 02/18/22 02/18/22 02/18/22 08:06 09:26 11:48 Glucose 199 H POC Glucose 122 H 151 H OUTPATIENT ANTIDIABETIC REGIMEN: * Trulicity 0.75 mg SC every Monday * HbA1c = 12% (02/15/22) ASSESSMENT: 02/18: * Oni received a total of 41 units of insulin yesterday, 24 units basal + 17 units bolus. BSGs were: 119-163-092-186 mg/dL. * Fasting BSG was 122 mg/dL this AM. * No changes necessary. 02/17: * 61 yo M admitted secondary to nausea and vomiting. Pharmacy has been consulted to assist with inpatient glycemic management. Patient is on Trulicity monotherapy as an outpatient. Ordered and tolerating a clear liquid diet. Nausea and vomiting persists. * BSGs last evening were: 330-253-197 mg/dL. * Received 12 units of Lantus and 6 units of Novolog. * Fasting BSG was 180 mg/dL this AM. Lunchtime BSG was 246 mg/dL. * Increased Lantus to 12 units BID. Tightened Novolog. PLAN FOR INPATIENT GLYCEMIC CONTROL: * Basal insulin * Lantus 12 units SC BID * Bolus insulin * NovoLog per scale ACHS or Q6hrs while NPO * Goal Range: Low 110 mg/dL - High 140 mg/dL * Correction Factor: 25 mg/dL/unit * Nutritional / Prandial insulin per carb ratio of 1 unit per 8 grams CHO consumed
--- NOTE | 2022-02-18 12:48 | Gastroenterology Progress Note ---
Date of Service February 18, 2022 Assessment & Plan (1) Abdominal pain: (2) Abnormal abdominal CT scan: Plan: OK to stop Famotidine Continue Pantoprazole 40 mg PO BID Continue Carafate 1g by mouth QID AC and HS for 10 days Recommend checking a Stool H. pylori Ag now....if positive, I would recommend treatment No alarm symptoms at present to warrant emergent endoscopic workup Avoid all NSAID's as they are ulcerogenic....recommend Tylenol PRN for pain control. Discussed case in detail with Dr. Hu Will arrange hospital F/U in our office next week and EGD in 1-2 weeks. (3) Elevated LFTs: Admission and Anticipated Discharge Date Admission Date: February 16, 2022 Subjective Patient is feeling better today. States that his abdominal pain is much better. Has tolerated PO intake. States that he has not had any hematemesis, melena or hematochezia. He denies any fevers, chills, nausea, or vomiting. He has no further complaints. Review of Systems Review of Systems: All systems reviewed & are unremarkable except as noted in Subjective Physical Exam Constitutional: WD/WN, vitals as above Respiratory: normal respiratory effort, lungs clear to auscultation Cardiovascular: RRR, no murmur, no edema Gastrointestinal (Abdomen): normal bowel sounds, soft, nontender, no hepatosplenomegaly Skin: no rashes, warm and dry Psychiatric: A+Ox3, euthymic affect Results & Data Results & Data ([facility]) Vital Signs (Past 12 Hours) Vital Signs Temp Pulse Resp BP Pulse Ox O2 Del Method 02/18/22 07:41 36.5 C 79 18 115/78 98 Room Air PG Care Time/CCT Total # of Minutes Spent Total Time Spent with Patient: Total time spent is greater than 50% in coordination of care (as documented) at patient's floor/unit and/or counseling patient: Coding Level of Care Code 33623 Subseq Hosp Care Lvl 3 Diagnoses Abdominal pain R10.13 Abdominal location: epigastric Abnormal abdominal CT scan R93.5 Elevated LFTs R79.89 (1) Abdominal pain Abdominal location: epigastric Qualified Code(s): R10.13 - Epigastric pain
--- NOTE | 2022-02-23 15:20 | Discharge Summary ---
Date of Service February 18, 2022 Admission HPI Per Admitting Provider Oni Jason is a 61-year-old male with past medical history significant for diabetes, hyperlipidemia, and tobacco use who is presenting today with abdominal pain. Starting Monday evening he had severe abdominal pain around his bellybutton with nausea and vomiting. Has been vomiting every 2 hours. He also notes that his sugar has been reading above 600 at home since then. He reports chills but no fevers. Monday was an ordinary day, did not eat anything particularly unusual for him, had [employer] chili and chocolate shake, no alcohol intake, he drinks alcohol very rarely, once or twice per month. He does state he has been taking Aleve fairly frequently, and another medicine that starts within a headaches, approximately 10-15 pills/week. He was seen in our ED yesterday, labs and significant for WBC 18, glucose of 400 with an AG 13, imaging did show thickening of the pylorus and proximal duodenum possibly recommending infectious or inflammatory gastritis/duodenitis. Patient was given IV fluids, pain medication, as well as Trulicity injection and was discharged home as his pain was under much better control. Several hours after returning home his pain came back again, rates 7/10. He has been drinking much more water and urinating more frequently over the past week or so. He has not had any diarrhea, constipation, melena, hematochezia, hematemesis, dysuria, hematuria. Today he is returning for worsening abdominal pain and elevated blood sugars. Labs significant for glucose of 330 with an anion gap of 15, bicarb 21. WBC is slightly elevated to 19.8, lactate 2.1, pseudohyponatremia 125, corrects to 305143 when accounting for BSG 330. T bili, AST, ALT all mildly elevated, all consistent/lower than baseline. Principal Diagnosis gastritis Discharge Exam General: awake, alert, no apparent distress Head: Normocephalic, atraumatic ENT: PERRL, EOMI, no pharyngeal exudate, mucous membranes moist Chest: Clear to auscultation, on room air, no adventitious breath sounds Cardiac: Regular rate and rhythm, no murmur, no JVD, normal peripheral pulses, good capillary refill Abdominal: soft, nontender, periumbilical region without rebound or guarding; NABS x 4 quadrants, soft, nontender to palpation Extremities: Normal inspection, no peripheral edema or erythema, calfs nontend er to palpation Psych: Normal mood and affect Neuro: AAO x 3, strength intact bilaterally and rated 5/5, no motor deficits, speech is clear, no peripheral sensory deficits Skin: no rash or erythema Discharge Data Allergies Allergy/AdvReac Type Severity Reaction Status Date / Time No Known Allergies Allergy Verified 02/16/22 14:58 Consultations 02/17/22 12:13 Consult Gastroenterology Routine Hospital Course (1) Gastritis and duodenitis: - CT A/P: Thickening of the pylorus and proximal duodenum may represent infectious/inflammatory gastritis/duodenitis. This is minimally increased from prior exam. Nonobstructive nephrolithiasis also seen. - Likely medication induced from frequent Aleve 10-15 pills/week for headaches, exacerbated by frequent vomiting over past 4 days. - Likely dehydrated and WBC count is reactive, but checking urine to r/o that as a source of potential infection. - improved with Pepcid, Protonix, Carafate, Bentyl prn. - Appreciate input from GI -will discharge on carafate and pantoprazole (2) Elevated LFTs: - ST, ALT, t bili all mildly elevated, actually lower than baseline over the past year. - CT A/P yesterday 02/15: liver unremarkable, GB w/o stones, normal caliber wall, no intra- or extrahepatic biliary ductal dilation. - improved. (3) Uncontrolled type 2 diabetes mellitus: - Follows with endocrine who has questioned whether he is type 1 vs type 2 - C peptide wnl, islet cell AB negative, insulin autoantibody negative-- indicates DM2. 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 - BSG 330 on admit, AG 15, lactate 2.1, bicarb 21. -improved at discharge. At discharge will resume metformin and defer further management of diabetes to PCP (4) Dyslipidemia: - Has previously declined stain therapy, also would not initiate currently with elevated LFTs. (5) Tobacco use disorder: - Smokes 1 PPD. - Nicotine patch ordered while hospitalized. Plan - SCDs for VTE ppx. - Full Code. Total Time Total Time Spent Total Time Spent (In Minutes): 35 Discharge Plan Discharge Items Patient Disposition: Home - Self-Care Reason For Visit: GASTRITIS Discharge Diagnosis: gastritis Activity: Resume your previous activity Non-emergency contact: Primary Care Provider Call non-emergency contact if: you have any medication questions Follow-up/Referrals: Bear Drake CRNP [Nurse Practitioner] - 02/25/22 1:00 pm (Please arrive 15 minutes prior to appointment time. ) Jonathon Burns, ONEAL [Primary Care Provider] - Diet: Regular Addtl Attending Provider Instructions: You were seen for abdominal pain. The GI Doctor, Dr. Jenkins recommended you to: continue Pantoprazole 40 mg PO BID (ongoing) Continue Carafate 1g by mouth QID AC and HS for 10 days Use tylenol for pain control, do not use NSAIDs such as aleve, ibuprofen, naprosyn. We will arrange hospital F/U in Dr. Jenkins's office next week Your blood sugar was also elevated, will recommend starting metformin and continue the trulicity. Please followup with your P in 1-2 weeksP. Will also recommend starting lisinopril, but will defer this to your PCP. Pending Studies at Discharge: No Stand-Alone Forms: My [facility] achvr, Smoking Cessation Medications and DC Order Prescriptions: New pantoprazole 40 mg Tablet,Delayed Release (Dr/Ec) 40 mg PO BID Qty: 60 0RF sucralfate 1 gram tablet 1 g PO ACHS 10 Days Qty: 40 0RF metformin 500 mg tablet extended release 24hr 500 mg PO PM Qty: 30 0RF Rx Instructions: on a full stomach Continued (DME) lancets [OneTouch Delica Lancets] 30 gauge misc See Rx Instructions .Route Qty: 300 3RF Rx Instructions: Test blood sugar three times daily (DME) OneTouch Verio test strips Strip See Rx Instructions .Route Qty: 300 3RF Rx Instructions: Test blood sugar three times daily (DME) blood-glucose meter [OneTouch Verio Meter] Misc See Rx Instructions .Route Qty: 1 0RF Rx Instructions: Test blood sugar three times daily ondansetron 4 mg tablet,disintegrating 4 mg PO Q6H PRN (Reason: nausea and vomiting) Qty: 10 0RF No Action Trulicity 0.75 mg/0.5 mL pen injector 0.75 mg subcut WK Qty: 2 0RF Rx Instructions: TAKES ON WEDNESDAYS Discharge Orders: Discharge Order (Routine); Ordered 02/18/22 Ordered By: William Hu Admission Data Admit Date/Time: 02/16/22 15:01 Attending Provider: William Hu Admit Provider: Supa Mckeon Primary Care Provider: Jonathon Burns Other Providers: Soren Jenkins Other Interventions: Discharge Summary Assessment (RN) Last Done: 02/18/22 15:56 Coding Level of Care Code D/C DAY MANAGEMENT >30 MINS Diagnoses Gastritis and duodenitis K29.90 Elevated LFTs R79.89 Uncontrolled type 2 diabetes mellitus E11.65 Glycemic state: with hyperglycemia Dyslipidemia E78.5 Tobacco use disorder F17.200
== END 2022-02-18 16:19 | disposition home or self-care (01) ==
LOC: ED 13:16 → 3N 13:16 → SUATTDRO 15:01 → 3N 16:13
DX: K29.90 Gastroduodenitis, unspecified, without bleeding; R94.5 Abnormal results of liver function studies; R93.5 Abnormal findings on diagnostic imaging of other abdominal regions, including retroperitoneum; F17.210 Nicotine dependence, cigarettes, uncomplicated; E11.65 Type 2 diabetes mellitus with hyperglycemia; E78.5 Hyperlipidemia, unspecified